=== PATIENT | male | born 1940 | race Caucasian/White ===

== ENCOUNTER 2016-12-29 21:58 | Emergency (ER) | payer MEDICARE ==
[~2016-12-29] VITALS: Ht 175.3 cm; Wt 60.0 kg
[~2016-12-29 21:58] MED LIST: ASPI1TAB69 PO; FERR325T2 PO; HYDR-3133 PO; KETO2SHA TOPICAL; LISI40TA PO; METF500T PO; METO50TA PO; MIRT30TA PO; OLAN5TAB PO
[2016-12-29 22:01] VITALS: BP 160/80; PULSE 80; RESP 16; TEMP 97.4; O2SAT 97
[2016-12-30 00:26] VITALS: BP 187/91; PULSE 68; RESP 18; O2SAT 100
--- NOTE | 2016-12-30 00:43 | PD ---
HPI Chief Complaint: Dizziness Time Seen by Provider: 00:39 Travel History International Travel<30 days: No Contact w/Intl Traveler<30days: No Traveled to known affect area: No History of Present Illness HPI This 76-year-old man who presents to the emergency department complaining of dizziness. He states he's had 30 pounds of weight loss. He thinks his sodium may be low and that his blood pressure is high. He also thinks she is worried he may have HIV but he doesn't describe why he thinks that. Denies any complaints. States she has no medical problems but doesn't endorse takes medicine for blood pressure. The record shows he has schizophrenia, hypertension and diabetes. Of note he was seen back in 2013 and apparently then also had a preoccupation with concern for HIV. HIV test was negative at that time. History Past Medical History Narrative Medical Hypertension Diabetes Schizophrenia Tetanus Vaccination: Unknown Influenza Vaccination: No Social History Alcohol Use: Yes (BINGE DRINKING) Tobacco Use: No Allergies-Medications (Allergen,Severity, Reaction): Coded Allergies: codeine (Unverified Allergy, Severe, 12/30/16) penicillin G (Unverified Allergy, Severe, Rash, 12/30/16) chocolate flavor (Unverified Allergy, Intermediate, Rash, 12/30/16) Reported Meds & Prescriptions Reported Meds & Active Scripts Active Metformin (Metformin HCl) 500 Mg Tab 500 Mg PO DAILY With meals Ferrous Sulfate DR (Ferrous Sulfate) 325 Mg Tabdr 1 Tab PO DAILY Mirtazapine 30 Mg Tab 30 Mg PO HS Metoprolol Tartrate 50 Mg Tab 50 Mg PO BID Reported Olanzapine 5 Mg Tab 5 Mg PO HS Review of Systems Except as stated in HPI: all other systems reviewed are Neg Physical Exam Narrative GENERAL: Well-appearing 76-year-old man, no acute distress. SKIN: Focused skin assessment warm/dry. HEAD: Atraumatic. Normocephalic. NECK: Trachea midline. No JVD. CARDIOVASCULAR: Regular rate and rhythm. No murmur appreciated. RESPIRATORY: No accessory muscle use. Clear to auscultation. Breath sounds equal bilaterally. GASTROINTESTINAL: Abdomen soft, non-tender, nondistended. Hepatic and splenic margins not palpable. MUSCULOSKELETAL: No obvious deformities. No clubbing. No cyanosis. No edema. NEUROLOGICAL: Awake and alert. No obvious cranial nerve deficits. Little bit of nystagmus with end gaze bilaterally. Motor grossly within normal limits. Normal speech. PSYCHIATRIC: Appropriate mood and affect; insight and judgment normal. Data Data Last Documented VS Vital Signs Date Time Temp Pulse Resp B/P (MAP) Pulse Ox O2 Delivery O2 Flow Rate FiO2 12/30/16 00:26 68 18 187/91 (123) 100 Room Air 12/29/16 22:01 97.4 Orders Orders Complete Blood Count With Diff (12/30/16 00:39) Comprehensive Metabolic Panel (12/30/16 00:39) Urinalysis - C+S If Indicated (12/30/16 00:39) Iv Access Insert/Monitor (12/30/16 00:39) Ct Brain W/O Iv Contrast(Rout) (12/30/16 ) Chest, Single Ap (12/30/16 ) MDM Medical Decision Making Medical Screen Exam Complete: Yes Emergency Medical Condition: Yes Differential Diagnosis Weakness, occult malignancy, anemia, dehydration, UTI, other Narrative Course Medical decision making INITIAL: 76-year-old man presents emergent department complaining of dizziness. States been losing weight. No other real specific symptoms. He looks well. Is a little bit of nystagmus. Exam is otherwise unremarkable. We'll check labs , CT head, likely discharge. James Guy MD Dec 30, 2016 00:43
--- NOTE | 2016-12-30 01:12 | RADRPT ---
EXAM DATE/TIME: 12/30/2016 00:48 [facility] COMPARISON: No previous studies available for comparison. INDICATIONS : Dizziness and weakness MEDICAL HISTORY : Hepatitis B. Hypertension Gastroesophageal reflux disease. chf SURGICAL HISTORY : Appendectomy. Cholecystectomy. ENCOUNTER: Initial ACUITY: 1 day PAIN SCORE: 7/10 LOCATION: Bilateral chest FINDINGS: A single view of the chest demonstrates the lungs to be symmetrically aerated without evidence of mas s, infiltrate or effusion. The cardiomediastinal contours are unremarkable except tortuous aorta. O sseous structures are intact. CONCLUSION: 1. No acute findings. Tortuous aorta. Dino Bailey MD on December 30, 2016 at 1:09 Board Certified Radiologist. This report was verified electronically.
[2016-12-30 01:50] LABS: AUTOMATED NEUTROPHIL # 3.7 TH/MM3 (1.8-7.7); BASOPHIL % 0.8 % (0.0-2.0); EOSINOPHIL # 0.1 TH/MM3 (0-0.4); EOSINOPHIL % 1.9 % (0.0-4.0); HEMATOCRIT 26.6 % (39.0-51.0); HEMO FLAGS DIFF FINAL; LYMPH % 23.9 % (9.0-44.0); LYMPHOCYTE # 1.4 TH/MM3 (1.0-4.8); MEAN CELL VOLUME 68.4 FL (80.0-100.0); MEAN CORPUSCULAR HEMOGLOBIN 22.6 PG (27.0-34.0); MEAN CORPUSCULAR HGB CONC 33.1 % (32.0-36.0); MONO % 10.6 % (0.0-8.0); NEUT % 62.8 % (16.0-70.0); PLATELET COUNT 185 TH/MM3 (150-450); RED BLOOD COUNT 3.89 MIL/MM3 (4.50-5.90); RED CELL DISTRIBUTION WIDTH 18.9 % (11.6-17.2); WHITE BLOOD COUNT 5.9 TH/MM3 (4.0-11.0)
[2016-12-30 01:51] LABS: ALT (GPT) 14 U/L (12-78); ANION GAP 6 MEQ/L (5-15); AST (GOT) 14 U/L (15-37); BICARBONATE 29.4 MEQ/L (21.0-32.0); BLOOD UREA NITROGEN 16 MG/DL (7-18); CHLORIDE 103 MEQ/L (98-107); GLOMERULAR FILTRATION RATE 53 ML/MIN (>89); POTASSIUM 3.8 MEQ/L (3.5-5.1); SODIUM (NA) 138 MEQ/L (136-145)
[2016-12-30 01:54] LABS: ALKALINE PHOSPHATASE 67 U/L (45-117); TOTAL BILIRUBIN ADULT 1.6 MG/DL (0.2-1.0)
--- NOTE | 2016-12-30 01:58 | RADRPT ---
EXAM DATE/TIME: 12/30/2016 01:28 [facility] COMPARISON: CT BRAIN W/O CONTRAST, February 13, 2014, 6:23. INDICATIONS : Dizziness. RADIATION DOSE: 56.77 CTDIvol (mGy) MEDICAL HISTORY : Congestive heart failure. Hypertension. Diabetes. SURGICAL HISTORY : None. ENCOUNTER: Initial ACUITY: 1 day PAIN SCALE: 0/10 LOCATION: cranial TECHNIQUE: Multiple contiguous axial images were obtained of the head. Using automated exposure control and adj ustment of the mA and/or kV according to patient size, radiation dose was kept as low as reasonably a chievable to obtain optimal diagnostic quality images. DICOM format image data is available electro nically for review and comparison. FINDINGS: CEREBRUM: The ventricles are normal for age. No evidence of midline shift, mass lesion, hemorrhage or acute in farction. No extra-axial fluid collections are seen. POSTERIOR FOSSA: The cerebellum and brainstem are intact. The 4th ventricle is midline. The cerebellopontine angle i s unremarkable. EXTRACRANIAL: The visualized portion of the orbits is intact. SKULL: The calvaria is intact. No evidence of skull fracture. CONCLUSION: 1. No acute intracranial abnormality. No significant change from 2013. Dino Bailey MD on December 30, 2016 at 1:54 Board Certified Radiologist. This report was verified electronically.
[2016-12-30 04:14] LABS: BLOOD, URINE NEG (NEG); COMMENT (UR) CULT NOT INDICATED; CULTURE IF INDICATED CULT NOT INDICATED; GLUCOSE,URINE NEG (NEG); KETONE, URINE TRACE mg/dL (NEG); MUCUS URINE FEW /lpf (OCC); NITRITE,URINE NEG (NEG); SQUAMOUS EPITHELIAL CELL URINE <1 /hpf (0-5); URINE COLOR YELLOW (YELLW/STRAW)
--- NOTE | 2016-12-30 04:43 | PD ---
Data Data Last Documented VS Vital Signs Date Time Temp Pulse Resp B/P (MAP) Pulse Ox O2 Delivery O2 Flow Rate FiO2 12/30/16 00:26 68 18 187/91 (123) 100 Room Air 12/29/16 22:01 97.4 Orders Orders Complete Blood Count With Diff (12/30/16 00:39) Comprehensive Metabolic Panel (12/30/16 00:39) Urinalysis - C+S If Indicated (12/30/16 00:39) Iv Access Insert/Monitor (12/30/16 00:39) Ct Brain W/O Iv Contrast(Rout) (12/30/16 ) Chest, Single Ap (12/30/16 ) Labs Laboratory Tests Test 12/30/16 01:05 12/30/16 03:34 White Blood Count 5.9 TH/MM3 Red Blood Count 3.89 MIL/MM3 Hemoglobin 8.8 GM/DL Hematocrit 26.6 % Mean Corpuscular Volume 68.4 FL Mean Corpuscular Hemoglobin 22.6 PG Mean Corpuscular Hemoglobin Concent 33.1 % Red Cell Distribution Width 18.9 % Platelet Count 185 TH/MM3 Mean Platelet Volume 10.1 FL Neutrophils (%) (Auto) 62.8 % Lymphocytes (%) (Auto) 23.9 % Monocytes (%) (Auto) 10.6 % Eosinophils (%) (Auto) 1.9 % Basophils (%) (Auto) 0.8 % Neutrophils # (Auto) 3.7 TH/MM3 Lymphocytes # (Auto) 1.4 TH/MM3 Monocytes # (Auto) 0.6 TH/MM3 Eosinophils # (Auto) 0.1 TH/MM3 Basophils # (Auto) 0.0 TH/MM3 CBC Comment DIFF FINAL Differential Comment Blood Urea Nitrogen 16 MG/DL Creatinine 1.31 MG/DL Random Glucose 96 MG/DL Total Protein 7.6 GM/DL Albumin 4.1 GM/DL Calcium Level 8.9 MG/DL Alkaline Phosphatase 67 U/L Aspartate Amino Transf (AST/SGOT) 14 U/L Alanine Aminotransferase (ALT/SGPT) 14 U/L Total Bilirubin 1.6 MG/DL Sodium Level 138 MEQ/L Potassium Level 3.8 MEQ/L Chloride Level 103 MEQ/L Carbon Dioxide Level 29.4 MEQ/L Anion Gap 6 MEQ/L Estimat Glomerular Filtration Rate 53 ML/MIN Urine Color YELLOW Urine Turbidity CLEAR Urine pH 6.0 Urine Specific [place] 1.011 Urine Protein TRACE mg/dL Urine Glucose (UA) NEG mg/dL Urine Ketones TRACE mg/dL Urine Occult Blood NEG Urine Nitrite NEG Urine Bilirubin NEG Urine Urobilinogen LESS THAN 2.0 MG/DL Urine Leukocyte Esterase NEG Urine RBC 1 /hpf Urine WBC LESS THAN 1 /hpf Urine Squamous Epithelial Cells <1 /hpf Urine Mucus FEW /lpf Microscopic Urinalysis Comment CULT NOT INDICATED MDM Supervised Visit with SARITA: Yes Interpretation(s) LABS: CBC remarkable for mild anemia, microcytic indices. CMP is unremarkable. Mildly elevated total bili. UA unremarkable. Head CT negative. Chest x-ray negative. Narrative Course 76-year-old with mild dizziness. Looks well. Mildly abnormal labs including anemia. Reviewed previous labs. Recommend outpatient follow-up. Diagnosis Primary Impression: Dizziness Additional Instruction: Follow-up with your doctor for further evaluation for anemia and other mildly abnormal labs. Return to the emergency department for any new or worsening symptoms. Med/Other Pt SpecificInfo: No Change to Meds Disposition: 01 DISCHARGE HOME Condition: Stable James Guy MD Dec 30, 2016 04:43
[2017-01-10] MEDS ORDERED: OLAN5TAB PO (08:37)
== END 2016-12-30 05:20 | disposition home or self-care (01) ==
LOC: NEPC 21:58
DX: R42 Dizziness and giddiness (principal); D64.9 Anemia, unspecified; F20.9 Schizophrenia, unspecified; I10 Essential (primary) hypertension; E11.9 Type 2 diabetes mellitus without complications; Z88.0 Allergy status to penicillin; Z79.899 Other long term (current) drug therapy
CPT/HCPCS: 70450; 71010; 80053; 81001; 85025; 99284

== ENCOUNTER 2017-01-02 17:46 | Emergency (ER) | payer MEDICARE, MEDICAID ==
[~2017-01-02] VITALS: Ht 175.3 cm; Wt 55.0 kg
[~2017-01-02 17:46] MED LIST changes: -ASPI1TAB69 PO; -HYDR-3133 PO; -KETO2SHA TOPICAL; -LISI40TA PO
[2017-01-02 18:01] VITALS: BP 178/81; PULSE 58; RESP 12; TEMP 97.5; O2SAT 98
--- NOTE | 2017-01-02 19:00 | PD ---
HPI Chief Complaint: Complaint Time Seen by Provider: 18:56 Travel History International Travel<30 days: No Contact w/Intl Traveler<30days: No Traveled to known affect area: No History of Present Illness HPI 76-year-old male presents to the emergency department for evaluation of urinary retention. He states he last went this morning and is not able to go today. However, his underwear is saturated with urine. He states he has never had this problem before. He states he did have a Alford catheter when he was in the hospital previously for pneumonia. Patient denies any headaches. No fevers or chills. No chest pain or shortness breath. No abdominal pain. No Nausea, vomiting, diarrhea. Patient reports history of diabetes, hypertension. He is currently on metformin, Metroprolol. PFSH Past Medical History Arthritis: Yes Asthma: No Autoimmune Disease: No Blood Disorders: No Bipolar Disorder: Yes Anxiety: No Depression: Yes Heart Rhythm Problems: No Cancer: No Cardiovascular Problems: Yes (HTN) High Cholesterol: No Chemotherapy: No Chest Pain: No Congestive Heart Failure: Yes COPD: No Cerebrovascular Accident: No Diabetes: Yes Patient Takes Glucophage: Yes Diminished Hearing: Yes (BILATERAL [place]; NO HEARING AIDES) Endocrine: Yes Gastrointestinal Disorders: Yes GERD: Yes (gerd) Glaucoma: No Genitourinary: No Headaches: No Hepatitis: Yes (HEPATITIS B) Hiatal Hernia: No Hypertension: Yes Immune Disorder: No Kidney Stones: No Musculoskeletal: Yes (ARTHRITIS) Neurologic: No Psychiatric: Yes (BIPOLAR, SCHIZOPHRENIA) Reproductive: No Respiratory: No Migraines: No Myocardial Infarction: No Radiation Therapy: No Renal Failure: No Seizures: No Sickle Cell Disease: No Sleep Apnea: No Thyroid Disease: No Past Surgical History Abdominal Surgery: Yes AICD: No Appendectomy: Yes Arteriovenous Shunt: No Cardiac Surgery: No Cholecystectomy: Yes Ear Surgery: No Endocrine Surgery: No Eye Surgery: No Genitourinary Surgery: No Gynecologic Surgery: No Insulin Pump: No Joint Replacement: No Oral Surgery: No Pacemaker: No Thoracic Surgery: No Other Surgery: Yes Social History Alcohol Use: No (denies) Tobacco Use: No Substance Use: No Allergies-Medications (Allergen,Severity, Reaction): Coded Allergies: codeine (Unverified Allergy, Severe, 01/02/17) penicillin G (Unverified Allergy, Severe, Rash, 01/02/17) chocolate flavor (Unverified Allergy, Intermediate, Rash, 01/02/17) Tetanus Vaccines and Toxoid (Verified Allergy, Unknown, 01/02/17) Reported Meds & Prescriptions Reported Meds & Active Scripts Active Metformin (Metformin HCl) 500 Mg Tab 500 Mg PO DAILY With meals Ferrous Sulfate DR (Ferrous Sulfate) 325 Mg Tabdr 1 Tab PO DAILY Mirtazapine 30 Mg Tab 30 Mg PO HS Metoprolol Tartrate 50 Mg Tab 50 Mg PO BID Reported Olanzapine 5 Mg Tab 5 Mg PO HS Review of Systems Except as stated in HPI: all other systems reviewed are Neg Physical Exam Narrative GENERAL: Well-nourished, well-developed elderly male patient, afebrile. SKIN: Focused skin assessment warm/dry. HEAD: Normocephalic. Atraumatic. EYES: No scleral icterus. No injection or drainage. NECK: Supple, trachea midline. No JVD or lymphadenopathy. CARDIOVASCULAR: Regular rate and rhythm without murmurs, gallops, or rubs. RESPIRATORY: Breath sounds equal bilaterally. No accessory muscle use. Lungs sounds are clear to auscultation. GASTROINTESTINAL: Abdomen soft, non-tender, nondistended. MUSCULOSKELETAL: No cyanosis, or edema. BACK: Nontender without obvious deformity. No CVA tenderness. Data Data Last Documented VS Vital Signs Date Time Temp Pulse Resp B/P (MAP) Pulse Ox O2 Delivery O2 Flow Rate FiO2 01/02/17 18:01 97.5 58 12 178/81 (113) 98 Room Air Orders Orders Urinalysis - C+S If Indicated (01/02/17 18:50) Complete Blood Count With Diff (01/02/17 18:50) Basic Metabolic Panel (Bmp) (01/02/17 18:50) Urinary Catheter Insert/Apply (01/02/17 18:50) Labs Laboratory Tests Test 01/02/17 19:17 White Blood Count 4.5 TH/MM3 Red Blood Count 3.70 MIL/MM3 Hemoglobin 8.3 GM/DL Hematocrit 25.6 % Mean Corpuscular Volume 69.1 FL Mean Corpuscular Hemoglobin 22.3 PG Mean Corpuscular Hemoglobin Concent 32.3 % Red Cell Distribution Width 19.2 % Platelet Count 198 TH/MM3 Mean Platelet Volume 9.0 FL Neutrophils (%) (Auto) 66.7 % Lymphocytes (%) (Auto) 20.8 % Monocytes (%) (Auto) 7.3 % Eosinophils (%) (Auto) 3.8 % Basophils (%) (Auto) 1.4 % Neutrophils # (Auto) 3.0 TH/MM3 Lymphocytes # (Auto) 0.9 TH/MM3 Monocytes # (Auto) 0.3 TH/MM3 Eosinophils # (Auto) 0.2 TH/MM3 Basophils # (Auto) 0.1 TH/MM3 CBC Comment DIFF FINAL Differential Comment Urine Color YELLOW Urine Turbidity CLEAR Urine pH 5.5 Urine Specific [place] 1.013 Urine Protein NEG mg/dL Urine Glucose (UA) NEG mg/dL Urine Ketones NEG mg/dL Urine Occult Blood NEG Urine Nitrite NEG Urine Bilirubin NEG Urine Urobilinogen LESS THAN 2.0 MG/DL Urine Leukocyte Esterase NEG Urine RBC 1 /hpf Urine WBC 1 /hpf Urine Mucus FEW /lpf Microscopic Urinalysis Comment CATH-CULT NOT IND Blood Urea Nitrogen 19 MG/DL Creatinine 1.21 MG/DL Random Glucose 103 MG/DL Calcium Level 8.7 MG/DL Sodium Level 143 MEQ/L Potassium Level 4.1 MEQ/L Chloride Level 108 MEQ/L Carbon Dioxide Level 28.0 MEQ/L Anion Gap 7 MEQ/L Estimat Glomerular Filtration Rate 58 ML/MIN MDM Medical Decision Making Medical Screen Exam Complete: Yes Emergency Medical Condition: Yes Medical Record Reviewed: Yes Differential Diagnosis Urinary retention versus UTI versus kidney injury Narrative Course 76-year-old male presents to the emergency department for inability to urinate. Alford catheter was placed by RN. 500 mL of ry, clear urine are obtained. Patient appears well my exam. CBC, BMP, UA are ordered and pending. CBC shows stable anemia, hemoglobin 8.3, hematocrit 25.6. BMP shows no acute abnormality. UA is negative for acute infection. Patient will be given leg bag. He is instructed to follow up with urologist. He is to call tomorrow morning for an appointment. He'll be given the name and number of our urologist on-call. Patient verbalizes agreement to this. The patient was discharged in stable condition with instructions, including return instructions and follow up instructions. Diagnosis Primary Impression: Urinary retention Referrals: Deng Denise DO 1 day Patient Instructions: General Instructions, Urinary Retention in Men (ED) Additional Instructions: Follow-up with urology. Call tomorrow morning for an appointment. Make sure you let them know you had a Alford catheter placed due to urinary retention. Dr. Denise is our urologist on-call today. His number is attached. Return to the emergency department for any acute worsening of symptoms. Med/Other Pt SpecificInfo: No Change to Meds Disposition: 01 DISCHARGE HOME Condition: Stable ByronCarri Jan 02, 2017 19:00
[2017-01-02 20:05] LABS: BASOPHIL # 0.1 TH/MM3 (0-0.2); BASOPHIL % 1.4 % (0.0-2.0); BLOOD, URINE NEG (NEG); EOSINOPHIL # 0.2 TH/MM3 (0-0.4); EOSINOPHIL % 3.8 % (0.0-4.0); GLUCOSE,URINE NEG (NEG); HEMATOCRIT 25.6 % (39.0-51.0); HEMO FLAGS DIFF FINAL; KETONE, URINE NEG (NEG); LYMPH % 20.8 % (9.0-44.0); LYMPHOCYTE # 0.9 TH/MM3 (1.0-4.8); MEAN CELL VOLUME 69.1 FL (80.0-100.0); MEAN CORPUSCULAR HEMOGLOBIN 22.3 PG (27.0-34.0); MEAN CORPUSCULAR HGB CONC 32.3 % (32.0-36.0); MONO % 7.3 % (0.0-8.0); MUCUS URINE FEW /lpf (OCC); NEUT % 66.7 % (16.0-70.0); NITRITE,URINE NEG (NEG); PH, URINE 5.5 (5.0-8.5); PLATELET COUNT 198 TH/MM3 (150-450); RED CELL DISTRIBUTION WIDTH 19.2 % (11.6-17.2); URINE COLOR YELLOW (YELLW/STRAW); WHITE BLOOD COUNT 4.5 TH/MM3 (4.0-11.0)
[2017-01-02 20:06] LABS: COMMENT (UR) CATH-CULT NOT IND; CULTURE IF INDICATED CATH CULTURE NOT IND
[2017-01-02 20:26] LABS: POTASSIUM 4.1 MEQ/L (3.5-5.1)
[2017-01-10] MEDS ORDERED: OLAN5TAB PO (08:37)
== END 2017-01-02 22:20 | disposition home or self-care (01) ==
LOC: NEPE 17:46
DX: R33.9 Retention of urine, unspecified (principal); I10 Essential (primary) hypertension; I50.9 Heart failure, unspecified; E11.9 Type 2 diabetes mellitus without complications; Z79.84 Long term (current) use of oral hypoglycemic drugs; M19.90 Unspecified osteoarthritis, unspecified site; F31.9 Bipolar disorder, unspecified; K21.9 Gastro-esophageal reflux disease without esophagitis
CPT/HCPCS: 51702; 80048; 81001; 85025

== ENCOUNTER 2017-01-03 14:17 | Emergency (ER) | payer MEDICARE, MEDICAID ==
[~2017-01-03] VITALS: Ht 177.8 cm; Wt 80.0 kg
[2017-01-03 14:21] VITALS: BP 118/74; PULSE 71; RESP 20; TEMP 97.6; O2SAT 98
--- NOTE | 2017-01-03 15:15 | PD ---
HPI Chief Complaint: Complaint Time Seen by Provider: 14:46 Travel History International Travel<30 days: No Contact w/Intl Traveler<30days: No Traveled to known affect area: No History of Present Illness HPI This is a 76-year-old male who presents to the emergency department requesting his Alford catheter out. He had a Alford catheter placed yesterday in the setting of acute urinary retention. He says that it's bothering him he's been plenty of urine and he wants it taken out. He also has multiple complaints that been going on for a long period of time including decreased appetite, difficulty swallowing and difficulty eating, weight loss and fatigue. He follows with the resident clinic for primary care. [facility] Past Medical History Arthritis: Yes Asthma: No Autoimmune Disease: No Blood Disorders: No Bipolar Disorder: Yes Anxiety: No Depression: Yes Heart Rhythm Problems: No Cancer: No Cardiovascular Problems: Yes (HTN) High Cholesterol: No Chemotherapy: No Chest Pain: No Congestive Heart Failure: Yes COPD: No Cerebrovascular Accident: No Diabetes: Yes Diminished Hearing: Yes (BILATERAL [place]; NO HEARING AIDES) Endocrine: Yes Gastrointestinal Disorders: Yes GERD: Yes (gerd) Glaucoma: No Genitourinary: No Headaches: No Hepatitis: Yes (HEPATITIS B) Hiatal Hernia: No Hypertension: Yes Immune Disorder: No Kidney Stones: No Musculoskeletal: Yes (ARTHRITIS) Neurologic: No Psychiatric: Yes (BIPOLAR, SCHIZOPHRENIA) Reproductive: No Respiratory: No Migraines: No Myocardial Infarction: No Radiation Therapy: No Renal Failure: No Seizures: No Sickle Cell Disease: No Sleep Apnea: No Thyroid Disease: No Past Surgical History Abdominal Surgery: Yes AICD: No Appendectomy: Yes Arteriovenous Shunt: No Cardiac Surgery: No Cholecystectomy: Yes Ear Surgery: No Endocrine Surgery: No Eye Surgery: No Genitourinary Surgery: No Gynecologic Surgery: No Insulin Pump: No Joint Replacement: No Oral Surgery: No Pacemaker: No Thoracic Surgery: No Other Surgery: Yes Social History Alcohol Use: No (denies) Tobacco Use: No Substance Use: No Allergies-Medications (Allergen,Severity, Reaction): Coded Allergies: codeine (Unverified Allergy, Severe, 01/02/17) penicillin G (Unverified Allergy, Severe, Rash, 01/02/17) chocolate flavor (Unverified Allergy, Intermediate, Rash, 01/02/17) Tetanus Vaccines and Toxoid (Verified Allergy, Unknown, 01/02/17) Reported Meds & Prescriptions Reported Meds & Active Scripts Active Metformin (Metformin HCl) 500 Mg Tab 500 Mg PO DAILY With meals Ferrous Sulfate DR (Ferrous Sulfate) 325 Mg Tabdr 1 Tab PO DAILY Mirtazapine 30 Mg Tab 30 Mg PO HS Metoprolol Tartrate 50 Mg Tab 50 Mg PO BID Reported Olanzapine 5 Mg Tab 5 Mg PO HS Review of Systems ROS Limitations: Hearing Impaired Physical Exam Narrative GENERAL: Frail elderly male in no acute distress. SKIN: Focused skin assessment warm and dry. HEAD: Atraumatic. Normocephalic. EYES: Pupils equal and round. No injection or drainage. ENT: Moist mucous membranes NECK: Trachea midline. CARDIOVASCULAR: Regular rate and rhythm. No murmur appreciated. RESPIRATORY: Clear to auscultation. Breath sounds equal bilaterally. GASTROINTESTINAL: Abdomen soft, non-tender, nondistended. MUSCULOSKELETAL: No obvious deformities. NEUROLOGICAL: Awake and alert. No obvious cranial nerve deficits. Moving all extremities. PSYCHIATRIC: Appropriate mood and affect; insight and judgment normal. Data Data Last Documented VS Vital Signs Date Time Temp Pulse Resp B/P (MAP) Pulse Ox O2 Delivery O2 Flow Rate FiO2 01/03/17 14:21 97.6 71 20 118/74 (89) 98 Orders Orders Urinary Catheter - Remove (01/03/17 15:00) [facility] Medical Decision Making Medical Screen Exam Complete: Yes Emergency Medical Condition: Yes Differential Diagnosis BPH, Acute urinary retention, dehydration, dysphagia Narrative Course This is a 76-year-old male who presents to the emergency department requesting his Alford catheter out. It was placed yesterday in the setting of acute urinary retention. He says it's uncomfortable and he doesn't think he needs it anymore. The patient has a lot of complaints which are nonspecific and chronic in nature including dysphasia, difficulty eating and weight loss. All of these are appropriate to be followed by his primary care physician which I explained to them. He says he thinks he has HIV. I said we don't routinely do HIV test in the emergency department. His Alford catheter was removed at his request. I tried to contact his resident team to make them aware of his multiple visits to the ER. Diagnosis Primary Impression: Urinary retention Patient Instructions: General Instructions Additional Instructions: If you develop fever, persistent vomiting, back pain, or inability to eat return to the emergency department. Complete your antibiotics as prescribed. Stay well hydrated with Gatorade or water. Followup with your primary care physician in 2-3 days. Med/Other Pt SpecificInfo: No Change to Meds Disposition: 01 DISCHARGE HOME Condition: Stable Airam Daigle MD Jan 03, 2017 15:15
[2017-01-10] MEDS ORDERED: OLAN5TAB PO (08:37)
== END 2017-01-03 15:59 | disposition home or self-care (01) ==
LOC: NEPD 14:17
DX: R33.9 Retention of urine, unspecified (principal); R13.10 Dysphagia, unspecified; R53.83 Other fatigue
CPT/HCPCS: 99283

== ENCOUNTER 2017-01-11 01:00 | Emergency (ER) | payer MEDICARE, MEDICAID ==
[~2017-01-11] VITALS: Ht 182.9 cm; Wt 70.0 kg
[2017-01-11 01:12] VITALS: BP 138/65; PULSE 76; RESP 18; TEMP 98.1; O2SAT 98
--- NOTE | 2017-01-11 02:48 | PD ---
HPI Chief Complaint: Abdominal Pain Time Seen by Provider: 02:31 Travel History International Travel<30 days: No Contact w/Intl Traveler<30days: No Traveled to known affect area: No History of Present Illness HPI 76-year-old male complains of right-sided lower rib cage pain. Patient states that the symptoms started 3 days ago. Patient also complaint constipation. Patient states that he thinks that his sodium is low. Patient denies any nausea vomiting diarrhea. Patient denies any headache. Patient denies any abdominal pain. Patient denies any dysuria or frequency. Patient denies any fever chills. Patient states that he has frequent dizzy spell also. 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) Endocrine: Yes Gastrointestinal Disorders: Yes GERD: Yes (gerd) Glaucoma: No Genitourinary: No Headaches: No Hepatitis: Yes (HEPATITIS B) Hiatal Hernia: No Hypertension: Yes Immune Disorder: No Kidney Stones: No Musculoskeletal: Yes (ARTHRITIS) Neurologic: No Psychiatric: Yes (BIPOLAR, SCHIZOPHRENIA) Reproductive: No Respiratory: No Migraines: No Myocardial Infarction: No Radiation Therapy: No Renal Failure: No Seizures: No Sickle Cell Disease: No Sleep Apnea: No Thyroid Disease: No Tetanus Vaccination: Unknown Past Surgical History Abdominal Surgery: Yes AICD: No Appendectomy: Yes Arteriovenous Shunt: No Cardiac Surgery: No Cholecystectomy: Yes Ear Surgery: No Endocrine Surgery: No Eye Surgery: No Genitourinary Surgery: No Gynecologic Surgery: No Insulin Pump: No Joint Replacement: No Oral Surgery: No Pacemaker: No Thoracic Surgery: No Other Surgery: Yes Social History Alcohol Use: No (denies) Tobacco Use: No Substance Use: No Allergies-Medications (Allergen,Severity, Reaction): Coded Allergies: codeine (Unverified Allergy, Severe, 01/02/17) penicillin G (Unverified Allergy, Severe, Rash, 01/02/17) chocolate flavor (Unverified Allergy, Intermediate, Rash, 01/02/17) Tetanus Vaccines and Toxoid (Verified Allergy, Unknown, 01/02/17) Reported Meds & Prescriptions Reported Meds & Active Scripts Active Olanzapine 5 Mg Tab 5 Mg PO HS Metformin (Metformin HCl) 500 Mg Tab 500 Mg PO DAILY With meals Ferrous Sulfate DR (Ferrous Sulfate) 325 Mg Tabdr 1 Tab PO DAILY Mirtazapine 30 Mg Tab 30 Mg PO HS Metoprolol Tartrate 50 Mg Tab 50 Mg PO BID Review of Systems General / Constitutional: No: Fever Eyes: No: Visual changes HENT: Positive: Lightheadedness, No: Headaches Cardiovascular: Positive: Chest Pain or Discomfort Respiratory: No: Shortness of Breath Gastrointestinal: No: Abdominal Pain Genitourinary: No: Dysuria Musculoskeletal: No: Pain Skin: No Rash Neurologic: No: Weakness Psychiatric: No: Depression Endocrine: No: Polydipsia Hematologic/Lymphatic: No: Easy Bruising Physical Exam Narrative GENERAL: Well-nourished, well-developed patient. SKIN: Focused skin assessment warm/dry. HEAD: Normocephalic. EYES: No scleral icterus. No injection or drainage. NECK: Supple, trachea midline. No JVD or lymphadenopathy. CARDIOVASCULAR: Regular rate and rhythm without murmurs, gallops, or rubs. RESPIRATORY: Breath sounds equal bilaterally. No accessory muscle use. GASTROINTESTINAL: Abdomen soft, non-tender, nondistended. MUSCULOSKELETAL: No cyanosis, or edema. Patient has mild tenderness on palpation right lower rib cage area. No crepitus no deformity noted. BACK: Nontender without obvious deformity. No CVA tenderness. Neurologic exam: Patient's awake and alert oriented 3. No obvious focal neurological deficit. Data Data Last Documented VS Vital Signs Date Time Temp Pulse Resp B/P (MAP) Pulse Ox O2 Delivery O2 Flow Rate FiO2 01/11/17 01:12 98.1 76 18 138/65 (89) 98 Orders Orders Complete Blood Count With Diff (01/11/17 02:35) Comprehensive Metabolic Panel (01/11/17 02:35) Lipase (01/11/17 02:35) Chest, Single Ap (01/11/17 02:35) Iv Access Insert/Monitor (01/11/17 02:35) Ecg Monitoring (01/11/17 02:35) Oximetry (01/11/17 02:35) Ed Discharge Order (01/11/17 03:45) Labs Laboratory Tests Test 01/11/17 02:48 White Blood Count 5.7 TH/MM3 Red Blood Count 4.15 MIL/MM3 Hemoglobin 9.1 GM/DL Hematocrit 28.8 % Mean Corpuscular Volume 69.3 FL Mean Corpuscular Hemoglobin 21.9 PG Mean Corpuscular Hemoglobin Concent 31.6 % Red Cell Distribution Width 18.6 % Platelet Count 192 TH/MM3 Mean Platelet Volume 9.6 FL Neutrophils (%) (Auto) 63.5 % Lymphocytes (%) (Auto) 22.3 % Monocytes (%) (Auto) 8.8 % Eosinophils (%) (Auto) 3.3 % Basophils (%) (Auto) 2.1 % Neutrophils # (Auto) 3.6 TH/MM3 Lymphocytes # (Auto) 1.3 TH/MM3 Monocytes # (Auto) 0.5 TH/MM3 Eosinophils # (Auto) 0.2 TH/MM3 Basophils # (Auto) 0.1 TH/MM3 CBC Comment AUTO DIFF Blood Urea Nitrogen 24 MG/DL Creatinine 1.24 MG/DL Random Glucose 68 MG/DL Total Protein 7.7 GM/DL Albumin 4.0 GM/DL Calcium Level 9.0 MG/DL Alkaline Phosphatase 67 U/L Aspartate Amino Transf (AST/SGOT) 11 U/L Alanine Aminotransferase (ALT/SGPT) 12 U/L Total Bilirubin 1.3 MG/DL Sodium Level 142 MEQ/L Potassium Level 4.0 MEQ/L Chloride Level 107 MEQ/L Carbon Dioxide Level 25.9 MEQ/L Anion Gap 9 MEQ/L Estimat Glomerular Filtration Rate 57 ML/MIN Lipase 64 U/L [facility] Medical Decision Making Medical Screen Exam Complete: Yes Emergency Medical Condition: Yes Interpretation(s) 3:46 AM. Chest x-ray shows no acute process. CBC WBC 5.7. Hemoglobin 9.1 hematocrit 20.8. MCV 69.3. BUN 24. Creatinine 1.24. GFR 57. Differential Diagnosis Differential diagnosis including costochondritis, fracture ribs, hemopneumothorax Narrative Course 76-year-old male with right lower rib cage pain. Diagnosis Primary Impression: Chest wall pain Patient Instructions: General Instructions Additional Instructions: Follow-up with personal physician. Return if worse. Med/Other Pt SpecificInfo: No Change to Meds Disposition: 01 DISCHARGE HOME Condition: Stable Imtiaz Johnston MD Jan 11, 2017 02:48
[2017-01-11 03:00] LABS: AUTOMATED NEUTROPHIL # 3.6 TH/MM3 (1.8-7.7); BASOPHIL # 0.1 TH/MM3 (0-0.2); BASOPHIL % 2.1 % (0.0-2.0); EOSINOPHIL # 0.2 TH/MM3 (0-0.4); EOSINOPHIL % 3.3 % (0.0-4.0); HEMATOCRIT 28.8 % (39.0-51.0); HEMO FLAGS AUTO DIFF; LYMPH % 22.3 % (9.0-44.0); LYMPHOCYTE # 1.3 TH/MM3 (1.0-4.8); MEAN CELL VOLUME 69.3 FL (80.0-100.0); MEAN CORPUSCULAR HEMOGLOBIN 21.9 PG (27.0-34.0); MEAN CORPUSCULAR HGB CONC 31.6 % (32.0-36.0); MONO % 8.8 % (0.0-8.0); NEUT % 63.5 % (16.0-70.0); PLATELET COUNT 192 TH/MM3 (150-450); RED BLOOD COUNT 4.15 MIL/MM3 (4.50-5.90); RED CELL DISTRIBUTION WIDTH 18.6 % (11.6-17.2); WHITE BLOOD COUNT 5.7 TH/MM3 (4.0-11.0)
--- NOTE | 2017-01-11 03:29 | RADRPT ---
EXAM DATE/TIME: 01/11/2017 02:57 [facility] COMPARISON: CHEST SINGLE AP, December 30, 2016, 0:48. INDICATIONS : Inferior, anterior right rib pain. MEDICAL HISTORY : Congestive heart failure. Hypertension. Diabetes. SURGICAL HISTORY : None. ENCOUNTER: Initial ACUITY: 1 day PAIN SCORE: 5/10 LOCATION: Right chest FINDINGS: A single view of the chest demonstrates the lungs to be symmetrically aerated without evidence of mas s, infiltrate or effusion. Interstitial prominence in the lungs. The cardiomediastinal contours are u nremarkable. Osseous structures are intact. CONCLUSION: 1. No consolidation or effusion. Chronic interstitial prominence in the lungs. Dino Bailey MD on January 11, 2017 at 3:24 Board Certified Radiologist. This report was verified electronically.
[2017-01-11 03:30] VITALS: BP 147/73; PULSE 69; RESP 18; O2SAT 99
[2017-01-11 03:30] LABS: ALT (GPT) 12 U/L (12-78); ANION GAP 9 MEQ/L (5-15); AST (GOT) 11 U/L (15-37); BICARBONATE 25.9 MEQ/L (21.0-32.0); BLOOD UREA NITROGEN 24 MG/DL (7-18); CHLORIDE 107 MEQ/L (98-107); GLOMERULAR FILTRATION RATE 57 ML/MIN (>89); SODIUM (NA) 142 MEQ/L (136-145)
[2017-01-11 03:31] LABS: ALKALINE PHOSPHATASE 67 U/L (45-117); TOTAL BILIRUBIN ADULT 1.3 MG/DL (0.2-1.0)
[2017-01-11 03:56] LABS: ACANTHOCYTES 1+ (NORMAL); PLATELET ESTIMATE SMEAR NORMAL (NORMAL); PLATELET MORPHOLOGY NORMAL (NORMAL); SCAN/DIFF AUTO DIFF CONFIRMED
[2017-01-11 04:03] LABS: OVALOCYTES 1+ (NORMAL)
== END 2017-01-11 04:41 | disposition home or self-care (01) ==
LOC: NEPC 01:00
DX: R07.89 Other chest pain (principal); K59.00 Constipation, unspecified; I10 Essential (primary) hypertension; E11.9 Type 2 diabetes mellitus without complications; M19.90 Unspecified osteoarthritis, unspecified site; Z79.84 Long term (current) use of oral hypoglycemic drugs; Z79.899 Other long term (current) drug therapy; Z88.0 Allergy status to penicillin; Z88.5 Allergy status to narcotic agent
CPT/HCPCS: 71010; 80053; 83690; 85025; 99284

== ENCOUNTER → 2017-01-11 | Outpatient (CLI) | payer MEDICARE, MEDICAID ==
[2017-01-11 15:28] LABS: AUTOMATED NEUTROPHIL # 4.5 TH/MM3 (1.8-7.7); BASOPHIL # 0.2 TH/MM3 (0-0.2); BASOPHIL % 2.5 % (0.0-2.0); EOSINOPHIL # 0.2 TH/MM3 (0-0.4); HEMATOCRIT 28.7 % (39.0-51.0); HEMO FLAGS DIFF FINAL; LYMPH % 17.2 % (9.0-44.0); LYMPHOCYTE # 1.1 TH/MM3 (1.0-4.8); MEAN CORPUSCULAR HEMOGLOBIN 22.1 PG (27.0-34.0); MONO % 9.2 % (0.0-8.0); NEUT % 68.1 % (16.0-70.0); PLATELET COUNT 192 TH/MM3 (150-450); RED BLOOD COUNT 4.15 MIL/MM3 (4.50-5.90); RED CELL DISTRIBUTION WIDTH 19.3 % (11.6-17.2); WHITE BLOOD COUNT 6.5 TH/MM3 (4.0-11.0)
== END ==
LOC: CLAB 14:38
PROVIDERS: ATTEND Family Medicine
DX: R63.4 Abnormal weight loss (principal); Z11.59 Encounter for screening for other viral diseases
CPT/HCPCS: 36415; 85025; 85060; 86703; 86803; G0463; 99213

== ENCOUNTER → 2017-01-24 | Outpatient (CLI) | payer MEDICARE, MEDICAID ==
[~2017-01-24] MED LIST changes: -METF500T PO
== END ==
LOC: CLAB 10:36
PROVIDERS: ATTEND Family Medicine
DX: R63.4 Abnormal weight loss (principal); R79.9 Abnormal finding of blood chemistry, unspecified
CPT/HCPCS: 36415; 83010; 83615; 86038

== ENCOUNTER → 2017-03-04 | Outpatient (CLI) | payer MEDICARE, MEDICAID ==
[2017-03-04 11:24] LABS: AUTOMATED NEUTROPHIL # 3.5 TH/MM3 (1.8-7.7); BASOPHIL # 0.1 TH/MM3 (0-0.2); BASOPHIL % 2.2 % (0.0-2.0); EOSINOPHIL # 0.2 TH/MM3 (0-0.4); EOSINOPHIL % 3.1 % (0.0-4.0); HEMATOCRIT 30.7 % (39.0-51.0); LYMPH % 26.9 % (9.0-44.0); LYMPHOCYTE # 1.6 TH/MM3 (1.0-4.8); MEAN CELL VOLUME 69.9 FL (80.0-100.0); MEAN CORPUSCULAR HEMOGLOBIN 22.4 PG (27.0-34.0); MEAN CORPUSCULAR HGB CONC 32.1 % (32.0-36.0); MONO % 10.5 % (0.0-8.0); NEUT % 57.3 % (16.0-70.0); PLATELET COUNT 220 TH/MM3 (150-450); RED CELL DISTRIBUTION WIDTH 18.1 % (11.6-17.2); WHITE BLOOD COUNT 6.1 TH/MM3 (4.0-11.0)
[2017-03-04 11:25] LABS: HEMO FLAGS AUTO DIFF
[2017-03-04 11:53] LABS: ANION GAP 9 MEQ/L (5-15); AST (GOT) 13 U/L (15-37); BICARBONATE 24.2 MEQ/L (21.0-32.0); BLOOD UREA NITROGEN 21 MG/DL (7-18); CHLORIDE 106 MEQ/L (98-107); GLOMERULAR FILTRATION RATE 48 ML/MIN (>89); GLUCOSE,FASTING 178 MG/DL (74-99); POTASSIUM 4.6 MEQ/L (3.5-5.1); SODIUM (NA) 139 MEQ/L (136-145)
[2017-03-04 11:57] LABS: ALKALINE PHOSPHATASE 59 U/L (45-117); ALT (GPT) 11 U/L (12-78); TOTAL BILIRUBIN ADULT 1.6 MG/DL (0.2-1.0)
[2017-03-04 12:34] LABS: OVALOCYTES 1+ (NORMAL); SCAN/DIFF AUTO DIFF CONFIRMED; TEARDROP RBCS 1+ (NORMAL)
[2017-03-04 12:35] LABS: KERATOCYTES OCC (NORMAL)
== END ==
LOC: CLAB 11:04
PROVIDERS: ATTEND Family Medicine
DX: R63.4 Abnormal weight loss (principal)
CPT/HCPCS: 36415; 80053; 85025; G0463; 99213

== ENCOUNTER → 2017-04-12 | Outpatient (CLI) | payer MEDICARE, MEDICAID ==
[~2017-04-12] MED LIST changes: +CLOB-23 TOPICAL; +KETOC2%T TOPICAL; +OLAN10TA PO; -OLAN5TAB PO; +[UNRECOGNIZED DRUG - CODE] TOPICAL
[2017-04-12 11:42] LABS: AUTOMATED NEUTROPHIL # 2.7 TH/MM3 (1.8-7.7); BASOPHIL # 0.1 TH/MM3 (0-0.2); BASOPHIL % 1.5 % (0.0-2.0); EOSINOPHIL # 0.3 TH/MM3 (0-0.4); EOSINOPHIL % 5.5 % (0.0-4.0); HEMATOCRIT 28.1 % (39.0-51.0); HEMOGLOBIN 8.9 GM/DL (13.0-17.0); LYMPH % 28.7 % (9.0-44.0); LYMPHOCYTE # 1.5 TH/MM3 (1.0-4.8); MEAN CELL VOLUME 67.7 FL (80.0-100.0); MEAN CORPUSCULAR HEMOGLOBIN 21.6 PG (27.0-34.0); MEAN CORPUSCULAR HGB CONC 31.9 % (32.0-36.0); MEAN PLATELET VOLUME 10.1 FL (7.0-11.0); MONO % 12.5 % (0.0-8.0); MONOCYTE # 0.6 TH/MM3 (0-0.9); NEUT % 51.8 % (16.0-70.0); PLATELET COUNT 187 TH/MM3 (150-450); RED BLOOD COUNT 4.14 MIL/MM3 (4.50-5.90); RED CELL DISTRIBUTION WIDTH 17.2 % (11.6-17.2); WHITE BLOOD COUNT 5.2 TH/MM3 (4.0-11.0)
== END ==
LOC: CLAB 11:04
PROVIDERS: ATTEND Family Medicine
DX: D50.9 Iron deficiency anemia, unspecified (principal)
CPT/HCPCS: 36415; 85025; G0463; 99213

== ENCOUNTER → 2017-07-12 | Outpatient (CLI) | payer MEDICARE, MEDICAID ==
[2017-07-12 12:39] LABS: AUTOMATED NEUTROPHIL # 2.2 TH/MM3 (1.8-7.7); BASOPHIL % 0.9 % (0.0-2.0); EOSINOPHIL # 0.4 TH/MM3 (0-0.4); EOSINOPHIL % 8.2 % (0.0-4.0); HEMOGLOBIN 8.8 GM/DL (13.0-17.0); LYMPHOCYTE # 1.8 TH/MM3 (1.0-4.8); MEAN CELL VOLUME 64.2 FL (80.0-100.0); MEAN CORPUSCULAR HEMOGLOBIN 20.3 PG (27.0-34.0); MEAN CORPUSCULAR HGB CONC 31.5 % (32.0-36.0); MEAN PLATELET VOLUME 8.5 FL (7.0-11.0); MONO % 14.9 % (0.0-8.0); MONOCYTE # 0.8 TH/MM3 (0-0.9); PLATELET COUNT 134 TH/MM3 (150-450); RED BLOOD COUNT 4.35 MIL/MM3 (4.50-5.90); RED CELL DISTRIBUTION WIDTH 17.3 % (11.6-17.2); WHITE BLOOD COUNT 5.3 TH/MM3 (4.0-11.0)
[2017-07-12 13:04] LABS: BICARBONATE 27.1 MEQ/L (21.0-32.0); BLOOD UREA NITROGEN 44 MG/DL (7-18); CALCIUM 8.9 MG/DL (8.5-10.1); CHLORIDE 112 MEQ/L (98-107); GLOMERULAR FILTRATION RATE 53 ML/MIN (>89); GLUCOSE,FASTING 97 MG/DL (74-99); IRON (FE) 80 MCG/DL (65-175); SODIUM (NA) 144 MEQ/L (136-145)
[2017-07-12 13:08] LABS: % SATURATION IRON PROFILE 30.9 % (20-50); FERRITIN 178 NG/ML (26-388); TOTAL IRON BINDING CAPACITY 259 MCG/DL (250-450)
[2017-07-12 13:10] LABS: OVALOCYTES 1+ (NORMAL); TEARDROP RBCS 1+ (NORMAL)
[2017-07-12 13:11] LABS: ACANTHOCYTES OCC (NORMAL)
[2017-07-12 16:55] LABS: HEMOGLOBIN A1C 4.8 % (4.3-6.0)
== END ==
LOC: CLAB 11:51
PROVIDERS: ATTEND Family Medicine
DX: I10 Essential (primary) hypertension (principal); E11.9 Type 2 diabetes mellitus without complications; D64.9 Anemia, unspecified
CPT/HCPCS: 36415; 80048; 82728; 83036; 83540; 83550; 85025